=== PATIENT | female | born 1960 | race Caucasian/White ===

== ENCOUNTER 2017-03-11 05:17 | Day surgery (SDC) | payer BC ==
[2017-03-09 11:36] LABS: HEMATOCRIT 41.8 % (36.0-47.0); HEMOGLOBIN 13.8 g/dL (12.0-15.5); HGB HCT DIFFERENCE -0.4; MEAN CORPUSCULAR HEMOGLOBIN 30.1 pg (27.0-33.4); MEAN CORPUSCULAR HGB CONC 32.9 g/dL (32.0-36.0); MEAN CORPUSCULAR VOLUME 92 fl (80-97); RED BLOOD COUNT 4.57 10^6/uL (3.72-5.28); RED CELL DISTRIBUTION WIDTH 12.6 % (11.5-14.0)
[2017-03-09 11:47] LABS: APPEARANCE,URINE CLEAR; BILIRUBIN,URINE NEGATIVE (NEGATIVE); GLUCOSE, URINE NEGATIVE (NEGATIVE); KETONES,URINE NEGATIVE (NEGATIVE); LEUKOCYTE ESTERASE,URINE NEGATIVE (NEGATIVE); NITRITE,URINE NEGATIVE (NEGATIVE); PROTEIN,URINE NEGATIVE (NEGATIVE); URINE SPECIFIC GRAVITY 1.017; UROBILINOGEN,URINE NEGATIVE mg/dL (<2.0)
[2017-03-09 12:00] LABS: ANION GAP 12 (5-19); BLOOD UREA NITROGEN 17 mg/dL (7-20); CALCIUM 9.9 mg/dL (8.4-10.2); CARBON DIOXIDE 27 mmol/L (22-30); CHLORIDE 103 mmol/L (98-107); CREATININE RESULT 0.77 mg/dL (0.52-1.25); GLUCOSE 112 mg/dL (75-110); POTASSIUM 4.8 mmol/L (3.6-5.0); SODIUM 142.1 mmol/L (137-145)
--- NOTE | 2017-03-09 12:11 | RADIOLOGY REPORT (SQ) ---
EXAM DESCRIPTION: CHEST PA/LATERAL COMPLETED DATE/TIME: 03/09/2017 11:59 am REASON FOR STUDY: PRE OP COMPARISON: None. EXAM PARAMETERS: NUMBER OF VIEWS: two views TECHNIQUE: Digital Frontal and Lateral radiographic views of the chest acquired. RADIATION DOSE: NA LIMITATIONS: none FINDINGS: LUNGS AND PLEURA: No opacities, masses or pneumothorax. No pleural effusion. MEDIASTINUM AND HILAR STRUCTURES: No masses or contour abnormalities. HEART AND VASCULAR STRUCTURES: Heart normal size. No evidence for failure. BONES: No acute findings. HARDWARE: None in the chest. OTHER: No other significant finding. IMPRESSION: NO SIGNIFICANT RADIOGRAPHIC FINDING IN THE CHEST. TECHNICAL DOCUMENTATION: JOB ID: [id number] [employer]- All Rights Reserved
[~2017-03-11 05:17] MED LIST: CEFAZOLIN 1 GM/D5W RTU 1 GM/50 ML RTUPB IV PRN; LACTATED RINGERS 1000 ML IV PRN; LIDOCAINE 0.5% INJ-PF (5 MG/ML) 50 ML SDV SUBCUT PRN
[2017-03-11] MEDS ORDERED: BUPIVACAINE INJ/PF LIPOSOME/PF 266 MG/20 ML SDV ONE (06:50)
[2017-03-11] MEDS ORDERED: FENTANYL CITRATE INJ/PF 100 MCG/2 ML AMPUL ONE ×2 (07:08→09:21)
[2017-03-11] MEDS ORDERED: HYDROMORPHONE HCL INJ/PF 2 MG/ML AMPULE ONE (07:08)
[2017-03-11] MEDS ORDERED: MIDAZOLAM 2 MG/2 ML INJ ONE (07:08)
[2017-03-11] MEDS ORDERED: PROPOFOL INJ 200 MG/20 ML VIAL IV ONE (07:09)
[2017-03-11] MEDS ORDERED: ACETAMINOPHEN 100 ML IV ONE (07:09)
[2017-03-11] MEDS ORDERED: EPHEDRINE SULFATE INJ 50 MG/1 ML AMPULE ONE (07:09)
[2017-03-11] MEDS ORDERED: IBUPROFEN INJ 800 MG/8 ML VIAL IV ONE (07:09)
[2017-03-11] MEDS ORDERED: DIPHENHYDRAMINE HCL 50 MG/ML VIAL IV PRN (07:42)
[2017-03-11] MEDS ORDERED: MEPERIDINE HCL/PF INJ 25 MG/1 ML DISP.SYRIN IV PRN (07:42)
[2017-03-11] MEDS ORDERED: MORPHINE SULFATE 10 MG/ML INJ IV PRN (07:42)
[2017-03-11] MEDS ORDERED: FENTANYL CITRATE INJ/PF 100 MCG/2 ML AMPUL IV PRN ×3 (07:42)
[2017-03-11] MEDS ORDERED: OXYCODONE-ACETAMINOPHEN 5-325 MG TABLET PO PRN ×5 (07:42→10:37)
[2017-03-11] MEDS ORDERED: PROMETHAZINE HCL INJ 25 MG/1 ML VIAL IV PRN ×2 (07:42)
[2017-03-11] MEDS ORDERED: ONDANSETRON HCL INJ/PF 4 MG/2 ML SDV IV PRN (07:42)
--- NOTE | 2017-03-11 09:33 | OPERATIVE REPORT E ---
Operative Report NAME: JAIMIE MARION : 1960 AGE: 56Y DATE OF SURGERY: 03/11/2017 ROOM: OR PREOPERATIVE DIAGNOSES: 1. Uterine leiomyoma. 2. Pelvic pain. POSTOPERATIVE DIAGNOSES: 1. Uterine leiomyoma. 2. Pelvic pain. PROCEDURE: ROSANNA with BSO. SURGEON: ANTONI HARTLEY M.D. COMPLICATIONS: None. ANESTHESIA: General endotracheal. FINDINGS: Uterus involved with multiple uterine leiomyoma. Normal tubes and ovaries are appreciated. Gallbladder was absent. INDICATIONS FOR PROCEDURE: Patient Had symptomatic fibroids and desired attempted definitive therapy for pain. No guarantees or warranties regarding future outcome of the procedure had been made. The usual risks of bleeding, infection, anesthesia, and damage to organs and tissues have been discussed and the patient understood. Surgical options and routes had been discussed thoroughly. She decided on ROSANNA with BSO. PROCEDURE: The patient was taken to the operating room and placed in the modified lithotomy position and adequate anesthesia ascertained. Prepped and draped in the usual manner for a hysterectomy after a surgical time out performed, EUA performed, antibiotics had been given. Through a previous midline scar, incision was extended through subcutaneous fat and fascia. The peritoneum was entered without difficulty. Lysis of adhesions ensued to normalize anatomy and the pelvis. Self retaining retractor and packs were placed. The uterus was brought in the operative field and infundibulopelvic ligaments were crossclamped, cut, and cauterized using LigaSure device which was used throughout the case. Round ligaments were identified and suture ligated and held. The bladder was developed and reflected inferiorly throughout the case. Advancement with LigaSure device continued down to level of uterosacral ligaments which allowed cross clamping of the cervix and suture ligation and vagina was held at this point. The vagina was then closed with interrupted #1 chromic catgut. Good hemostasis was assured. Copious irrigation used. The parietal peritoneum and visceral peritoneum were noted to be dry. The tacks were removed. Fascia was closed with single strand PDS suture in an over fashion with tying of ends in the midline. Subcuticular stitch of 3-0 plain gut was placed and a subcuticular stitch of 4-0 Vicryl was used for the incision. At completion of procedure, all sponge, needle, instrument counts were correct. The patient was awakened and taken to the recovery room in stable condition. DICTATING PHYSICIAN: ANTONI HARTLEY M.D. [id number] PHY#: [id number] ID: [id number] JOB#: [id number] ACCT: [id number] cc:ANTONI HARTLEY M.D. >
[2017-03-11] MEDS ORDERED: MORPHINE SULFATE 10 MG/ML INJ INJ PRN ×4 (09:35→10:40)
[2017-03-11] MEDS ORDERED: MORPHINE SULFATE 10 MG/ML INJ IM PRN ×2 (09:36→10:41)
[2017-03-11] MEDS ORDERED: PROMETHAZINE HCL INJ 50 MG/1 ML VIAL IM PRN ×2 (09:36→10:41)
[2017-03-11] MEDS ORDERED: DEXTROSE 50%-WATER SYRINGE 12.5 GM/25 ML DOSE IV PRN (09:44)
[2017-03-11] MEDS ORDERED: DEXTROSE 40% GEL 15 GM TUBE PO PRN (09:44)
[2017-03-11] MEDS ORDERED: GLUCAGON,HUMAN RECOMB 1 MG INJ IM PRN (09:44)
[2017-03-11] MEDS ORDERED: DEXTROSE 50%-WATER SYRINGE 25 GM/50 ML DOSE IV PRN (09:44)
[2017-03-11] MEDS ORDERED: DEXTROSE 40% GEL 15 GM TUBE X 2 PO PRN (09:44)
[2017-03-11] MEDS ORDERED: RINGERS SOLUTION,LACTATED 1,000 ML IV PRN (10:36)
[2017-03-11] MEDS: IBUPROFEN 800 MG TABLET PO SCH ×3 (11:13→17:11)
[2017-03-11] MEDS: RINGERS SOLUTION,LACTATED 1,000 ML IV PRN ×2 (11:22→16:16)
[2017-03-11] MEDS: CEFAZOLIN 1 GM/D5W RTU 1 GM/50 ML RTUPB IV SCH ×2 (11:23→17:11)
[2017-03-11] MEDS ORDERED: CEFAZOLIN 1 GM/D5W RTU 1 GM/50 ML RTUPB IV SCH (12:00)
[2017-03-11] MEDS ORDERED: LIDOCAINE 2% INJ-PF (20 MG/ML) 10 ML AMPUL ONE (12:42)
[2017-03-11] MEDS ORDERED: METOCLOPRAMIDE HCL INJ/PF 10 MG/2 ML SDV ONE (12:42)
[2017-03-11] MEDS ORDERED: ROCURONIUM BROMIDE INJ 50 MG/5 ML VIAL IV ONE (12:42)
[2017-03-11] MEDS ORDERED: NEOSTIGMINE METHYLSULFATE 10 MG/10 ML VIAL ONE (12:42)
[2017-03-11] MEDS ORDERED: GLYCOPYRROLATE INJ 0.4 MG/2 ML VIAL ONE (12:42)
[2017-03-11] MEDS ORDERED: DEXAMETHASONE SOD PHOSPHATE INJ 4 MG/1 ML VIAL ONE (12:42)
[2017-03-11] MEDS ORDERED: ONDANSETRON HCL INJ/PF 4 MG/2 ML SDV ONE (12:42)
[2017-03-11] MEDS ORDERED: SUCCINYLCHOLINE CHLORIDE INJ 200 MG/10 ML VIAL ONE (12:42)
[2017-03-11] MEDS: INSULIN REG, HUMAN 100 UNIT/ML 3 ML VIAL (PYX) SUBCUT PRN ×2 (13:09→17:13)
[2017-03-11] MEDS ORDERED: IBUPROFEN 800 MG TABLET PO SCH (14:00)
[2017-03-11] MEDS: TRAMADOL HCL 50 MG TABLET PO PRN (14:24)
--- NOTE | 2017-03-11 16:20 | EKG REPORT ---
SEVERITY:- ABNORMAL ECG - SINUS OR ECTOPIC ATRIAL RHYTHM PROBABLE INFERIOR INFARCT, AGE INDETERMINATE : Confirmed by: Tonia Grissom MD 11-Mar-2017 16:19:28
[2017-03-11] MEDS ORDERED: SIMVASTATIN 10 MG TABLET PO SCH (22:00)
[2017-03-11] MEDS: OXYCODONE-ACETAMINOPHEN 5-325 MG TABLET PO PRN (22:20)
[2017-03-12] MEDS: TRAMADOL HCL 50 MG TABLET PO PRN (02:17)
[2017-03-12 06:37] LABS: ABSOLUTE BASOPHILS # (AUTO) 0.1 10^3/uL (0.0-0.2); ABSOLUTE LYMPHOCYTES (AUTO) 2.8 10^3/uL (0.5-4.7); ABSOLUTE MONOCYTES (AUTO) 1.6 10^3/uL (0.1-1.4); ABSOLUTE NEUT (AUTO) 9.1 10^3/uL (1.7-8.2); BASOPHILS % (AUTO) 0.6 % (0-2); EOSINOPHILS % (AUTO) 0.1 % (0-6); HEMATOCRIT 36.3 % (36.0-47.0); HEMOGLOBIN 11.8 g/dL (12.0-15.5); HGB HCT DIFFERENCE -0.9; LYMPHOCYTES % (AUTO) 20.6 % (13-45); MEAN CORPUSCULAR HEMOGLOBIN 29.9 pg (27.0-33.4); MEAN CORPUSCULAR HGB CONC 32.5 g/dL (32.0-36.0); MEAN CORPUSCULAR VOLUME 92 fl (80-97); MONOCYTES % (AUTO) 11.5 % (3-13); RED BLOOD COUNT 3.95 10^6/uL (3.72-5.28); RED CELL DISTRIBUTION WIDTH 12.5 % (11.5-14.0); SEGMENTED NEUTROPHILS % (AUTO) 67.2 % (42-78); WHITE BLOOD COUNT 13.6 10^3/uL (4.0-10.5)
[2017-03-12] MEDS: OXYCODONE-ACETAMINOPHEN 5-325 MG TABLET PO PRN (07:48)
[2017-03-12 09:30] VITALS: BP 133/87
[2017-03-12] MEDS ORDERED: LISINOPRIL 10 MG TABLET PO SCH (10:00)
[2017-03-12] MEDS ORDERED: AMLODIPINE BESYLATE 10 MG TABLET PO SCH (10:00)
[2017-03-12] MEDS ORDERED: (PENDING PHARMACY ID) (Lisinopril [Prinivil] 20 MG) PO SCH (10:00)
[2017-03-12] MEDS ORDERED: LORATADINE 10 MG TABLET PO SCH (10:00)
--- NOTE | 2017-03-12 18:19 | DISCHARGE SUMMARY E ---
Discharge Summary NAME: JAIMIE MARION : 1960 AGE: 56Y ADMITTED: 03/11/2017 DISCHARGED: 03/12/2017 A 56-year-old female admitted with symptomatic uterine leiomyoma. She underwent same day admission ROSANNA/BSO without complications. Postop hematocrit was 33. She is ambulatory, regular diet. No evidence of DVT. Incision clean. Discharged. Return to the office in 1 week for assessment. Pathology pending at time of dictation. FINAL DIAGNOSIS: Uterine leiomyoma. PROCEDURE: ROSANNA/BSO. DICTATING PHYSICIAN: ANTONI HARTLEY M.D. [id number] PHY#: [id number] ID: [id number] JOB#: [id number] ACCT: [id number] cc:ANTONI HARTLEY M.D. >
== END 2017-03-12 09:40 | disposition home or self-care (01) ==
LOC: INOR 05:17 → OROUT 05:17 → UNDOADMIN 05:17 → 2N 10:10 → INOR 10:10 → OROUT 03-12 09:40 → UNDODISIN 03-12 09:40 → EDSTATUS 03-13 07:15
PROVIDERS: ATTEND Specialist
PROC: 0UTC0ZZ Resection of Cervix, Open Approach (ICD-10-PCS; 2017-03-11)
PROC: 0UT20ZZ Resection of Bilateral Ovaries, Open Approach (ICD-10-PCS; 2017-03-11)
PROC: 0UT70ZZ Resection of Bilateral Fallopian Tubes, Open Approach (ICD-10-PCS; 2017-03-11)
PROC: 0UT90ZZ Resection of Uterus, Open Approach (ICD-10-PCS; principal; 2017-03-11 07:15)
DX: N80.0 Endometriosis of uterus (principal); N83.312 Acquired atrophy of left ovary; N83.311 Acquired atrophy of right ovary; D25.1 Intramural leiomyoma of uterus; E11.9 Type 2 diabetes mellitus without complications; I10 Essential (primary) hypertension; E78.00 Pure hypercholesterolemia, unspecified; Z79.84 Long term (current) use of oral hypoglycemic drugs; Z79.899 Other long term (current) drug therapy; Z79.891 Long term (current) use of opiate analgesic
CPT/HCPCS: 93005; 86900; 86901; 36415 ×2; 86850; 82962 ×2; 85025; 85027; 80048; 81001; 88307 ×2; 71020; 94799; 93010; 58150; J2250; J0690; J3490 ×2; J1100; J3010; J2765; J2270; J1170; J1815; J2550; J0330; J2405; J7120; J2704; J0131; C9290; J1741; 840